=== PATIENT | male | born 1950 | race Caucasian/White ===

== ENCOUNTER 2020-11-02 07:36 | Day surgery (SDC) | payer OTHER ==
[2020-11-01 13:12] LABS: Potassium 4.2 mmol/L (3.5-5.1)
[2020-11-01 13:44] LABS: Absolute Lymphocytes (CBC) 1.9 K/uL (0.7-4.9); Basophils % 0.9 % (0-1.3); Hematocrit 46.4 % (39.6-49.0); Lymphocytes % 21.2 % (15.3-44.8); MPV 7.9 fL (7.6-11.3); RBC Red Blood Cell Count 4.66 M/uL (4.33-5.43)
--- NOTE | 2020-11-01 13:45 | RAD REPORT ---
EXAM DESCRIPTION: RAD - Chest Pa And Lat (2 Views) - 11/01/2020 1:11 pm CLINICAL HISTORY: preop COMPARISON: None TECHNIQUE: Frontal and lateral views of the chest were obtained. FINDINGS: The lungs are clear. No thompson mass or lymphadenopathy identified. Heart size is normal and central vasculature is within normal limits. No pleural effusion or pneumothorax seen. No acute chris [place] finding noted. No aortic abnormality. IMPRESSION: No acute cardiopulmonary process.
[2020-11-02] MEDS ORDERED: NA CHLORIDE 0.9% 1,000 ML ONE (08:19)
[2020-11-02] MEDS ORDERED: CEFAZOLIN/SWI 1gm 1 GM/10 ML SYR ONE (08:20)
[2020-11-02] MEDS ORDERED: propofoL 200 MG/20 ML VIAL IV ONE (09:28)
[2020-11-02] MEDS ORDERED: FENTANYL CITR 100 MCG/2 ML ONE (09:28)
[2020-11-02] MEDS ORDERED: LIDOCAINE 1% MPF 5 ML VIAL ONE (09:29)
[2020-11-02] MEDS: BUPIVACAINE 0.5% PF 10 ML VIAL ONE ×2 (09:35→09:39)
[2020-11-02] MEDS ORDERED: EPHEDRINE SULF 50 MG/ML VIAL ONE (09:52)
[2020-11-02] MEDS ORDERED: NS 0.9% VIAL 10 ML ONE (09:53)
[2020-11-02] MEDS ORDERED: KETOROLAC 30 MG/ML INJ ONE (10:08)
[2020-11-02] MEDS ORDERED: ONDANSETRON 4 MG/2 ML VIAL ONE (10:25)
--- NOTE | 2020-11-02 10:52 | EKG ---
Test Date: 2020-11-01 Test Time: 13:20:34 Chip Bin Operator: AYE MEASUREMENT RESULTS: Intervals: Rate: 61 IN: 154 QRSD: 84 QT: 408 QTc: 410 [place]: P: 65 IN: 154 QRS: 79 T: 50 INTERPRETIVE STATEMENTS: Normal sinus rhythm Normal ECG No previous ECG available for comparison Electronically Signed On 11-02-20 10:48:31 CDT by Sunday Moreno
--- NOTE | 2020-11-02 10:57 | OP ---
Date of Procedure: 11/02/2020 Surgeon: Mukund Ordaz MD Pollution Control Technician: WILLY Rodríguez. Preoperative Diagnosis: Left inguinal hernia. Postoperative Diagnosis: Left inguinal hernia. Procedure: Repair of left inguinal hernia. Estimated Blood Loss: Minimal. Specimen: Cord lipoma. Findings: As above. Anesthesia: General. Complications: None. Disposition: The patient tolerated the procedure in stable condition and taken to recovery in good g eneral condition. Procedure In Detail: The patient was brought to the OR and placed in supine position. General anest hesia was begun. The patient was prepped and draped in the usual sterile fashion. Marcaine 0.5% was infiltrated in a field block fashion in the left groin. A 15-blade was used to make a 4-cm oblique incision between the pubic tubercle and the anterior iliac superior spine. Subcutaneous tissues were divided. Yajaira fascia was identified and divided. Aponeurosis was identified and mobilized inferi rachel to expose shelving edge, then opened through the external ring. The ilioinguinal nerve was iden tified and retracted out of the field of dissection. Cord was mobilized and skeletonized between the pubic tubercle. A large cord lipoma was present. High ligation was done with 2-0 chromic tie and t here were 2 components to it. Both were excised and sent to Pathology. There was no indirect sac pr esent. There was some laxity of the internal ring. Marlex mesh plug was placed and secured into the internal ring with VersaTack dominic and then onlay mesh was placed on the inguinal floor and secure d medially to the pubic tubercle, superiorly to the conjoined tendon, inferiorly to the shelving edge , laterally to each other, then cord structures and ilioinguinal nerve were placed back in anatomical location. A 2-0 Prolene used to close the aponeurosis. A 3-0 chromic was used to close the Yajaira fascia. Isabella were used to close the skin. Sterile dressing was applied. The patient was awakene d and taken to recovery in good general condition. Discharge Note: The patient will go to Day Surgery and home when stable. Disposition: Home. Condition: Stable. Discharge Instructions: Resume home medications and diet. Activity as tolerated. No heavy lifting. Remove outer dressing in 2 days. Shower. Keep wound clean and dry. Follow up in my office in 1 w ho-chunk. Call for appointment. Tylenol No.3 one tablet p.o. q.4 p.r.n. pain. Ice pack and scrotal supp ort as ordered. /MODL Voice ID: [id number] Report ID: [id number]
[2020-11-02] MEDS ORDERED: HYDROCODONE/APAP 7.5/325 MG TAB ONE (11:31)
[2020-11-02] MEDS ORDERED: LIDOCAINE JELLY 2%- 5 ML TUBE ONE (14:55)
[2020-11-02] MEDS ORDERED: TAMSULOSIN 0.4 MG SR CAP ONE (15:29)
[2020-11-02] MEDS ORDERED: CODEINE 30MG/APAP 300MG TAB ONE (15:39)
[2020-11-02 15:50] VITALS: BP 126/61; TEMP 97.5; O2SAT 94
== END 2020-11-02 15:35 | disposition home or self-care (01) ==
LOC: OR 07:36
PROVIDERS: ATTEND Surgery
PROC: 0YU60JZ Supplement Left Inguinal Region with Synthetic Substitute, Open Approach (ICD-10-PCS; principal; 2020-11-02 09:00)
DX: K40.90 Unilateral inguinal hernia, without obstruction or gangrene, not specified as recurrent (principal); Z20.822 Contact with and (suspected) exposure to COVID-19
CPT/HCPCS: 93005; 85025; 80048; 36415; 82947; 88302; 71046; 49505; U0003; J2704; J3010; J0690; J7030; J2405

== ENCOUNTER 2021-01-09 07:03 | Day surgery (SDC) | payer OTHER ==
[2021-01-03 09:48] LABS: Potassium 4.7 mmol/L (3.5-5.1)
[2021-01-03 09:55] LABS: Absolute Lymphocytes (CBC) 1.9 K/uL (0.7-4.9); Basophils % 0.8 % (0-1.3); Hematocrit 42.4 % (39.6-49.0); Lymphocytes % 23.1 % (15.3-44.8); MPV 7.8 fL (7.6-11.3); RBC Red Blood Cell Count 4.28 M/uL (4.33-5.43)
[2021-01-09] MEDS ORDERED: NA CHLORIDE 0.9% 1,000 ML ONE (07:50)
[2021-01-09] MEDS ORDERED: propofoL 200 MG/20 ML VIAL IV ONE (07:56)
[2021-01-09] MEDS ORDERED: LIDOCAINE 1% MPF 30 ML VIAL ONE (07:56)
[2021-01-09] MEDS ORDERED: GLYCOPYRROLATE 0.2 MG/ML SYR ONE (07:56)
--- NOTE | 2021-01-09 08:29 | ENDO RPT ---
[address], [address] COLONOSCOPY PROCEDURE REPORT EXAM DATE: 01/09/2021 PATIENT NAME: Apolinar Loera MR #: [id number] BIRTHDATE: 1950 ATTENDING: Mukund Ordaz M.D. STATUS: outpatient RESIDENTIAL SUPPORT SPECIALIST: Josephine Frausto RN and Charlene Archer CST INDICATIONS: The patient is a 70 yr old Male here for a colonoscopy due to personal history of colon polyps and colon cancer screening PROCEDURE PERFORMED: Colonoscopy with hot biopsy polypectomy MEDICATIONS: Per Anesthesia. ESTIMATED BLOOD LOSS: None CONSENT: The patient understands the risks and benefits of the procedure and understands that these risks include, but are not limited to: sedation, allergic reaction, infection, perforation and/or bleeding. Alternative means of evaluation and treatment include, among others: physical exam, x-rays, and/or surgical intervention. The patient elects to proceed with this endoscopic procedure. DESCRIPTION OF PROCEDURE: During intra-op preparation period all mechanical medical equipment was checked for proper function. Hand hygiene and appropriate measures for infection prevention was taken. Procedure, possible complications, alternatives including, but not limited to possibility of bleeding, perforation, tear, infection, sepsis, need for surgery, need for blood transfusion, were explained to the patient. After the risks, benefits and alternatives of the procedure were thoroughly explained, Informed consent was verified, confirmed and timeout was successfully executed by the treatment team. The patient was placed in the left lateral position. A digital rectal exam was performed and revealed nodules on the prostate. After appropriate level of anesthesia, the scope was passed. The EC-[id number] ([id number]) endoscope was introduced through the anus and advanced to the cecum, which was identified by the ileocecal valve. The quality of the prep was good. The instrument was then slowly withdrawn as the colon was fully examined. Scope withdrawal time was 14 minutes. COLON FINDINGS: Moderate diverticulosis was noted in the sigmoid colon. Retroflexed views revealed no abnormalities. The scope was then completely withdrawn from the patient and the procedure terminated. ADVERSE EVENTS: There were no complications. IMPRESSIONS: 1. Moderate diverticulosis was noted in the sigmoid colon 2. Sigmoid polyp 3. Rectal polyp RECOMMENDATIONS: 1. follow-up: office 1 week(s) 2. fiber rich diet 3. increase dietary water 4. no seeds in diet RECALL: Return in 3 year(s) for Colonoscopy. Mukund Ordaz M.D. eSigned: Mukund Ordaz M.D. 01/09/2021 8:29 AM cc: CPT CODES: ICD9 CODES: PATIENT NAME: Loera Apolinar D. MR#: [id number]
[2021-01-09 08:57] VITALS: TEMP 97.6
[2021-01-09 09:21] VITALS: BP 111/57; O2SAT 97
== END 2021-01-09 09:18 | disposition home or self-care (01) ==
LOC: OR 07:03
PROVIDERS: ATTEND Surgery
PROC: 0DBN8ZX Excision of Sigmoid Colon, Via Natural or Artificial Opening Endoscopic, Diagnostic (ICD-10-PCS; 2021-01-09)
PROC: 0DBP8ZX Excision of Rectum, Via Natural or Artificial Opening Endoscopic, Diagnostic (ICD-10-PCS; principal; 2021-01-09 08:00)
DX: K63.5 Polyp of colon (principal); Z20.822 Contact with and (suspected) exposure to COVID-19; K57.30 Diverticulosis of large intestine without perforation or abscess without bleeding; N40.2 Nodular prostate without lower urinary tract symptoms
CPT/HCPCS: 85025; 80048; 36415 ×2; 82947; 88305; 45384; G0103; U0002; J2704; J7030